=== PATIENT | male | born 1965 | race Caucasian/White ===

== ENCOUNTER 2017-06-08 12:30 | Emergency (ER) | payer OTHER ==
[2017-06-08 13:48] VITALS: BP 224/112
--- NOTE | 2017-06-08 14:13 | RAD ---
INDICATION: Intermittent pain and swelling for 2 years. TECHNIQUE: 3 views of the right foot were obtained. FINDINGS: There is soft tissue swelling adjacent to the first metatarsal-phalangeal joint. No fracture is seen. There is mild osteoarthritic change in the first metatarsal-phalangeal joint. There is suggestion of a small erosion at the base of the first proximal phalanx raising the pelvis and early gouty arthritis. IMPRESSION: SOFT TISSUE SWELLING ADJACENT TO THE FIRST METATARSAL-PHALANGEAL JOINT AND FINDINGS RAISING THE POSSIBILITY OF GOUT.
--- NOTE | 2017-06-08 14:29 | UC ---
Lower Extremity/Ankle HPI - HPI Summary HPI Summary: 51 yo male with intermittent left 1st MTP pain/swelling x 2 yrs states he has white coat HTN - History of Current Complaint Chief Complaint: UCLowerExtremity Stated Complaint: FOOT PAIN Time Seen by Provider: 06/08/17 13:38 Hx Obtained From: Patient Onset/Duration: Gradual Onset, Lasting Days Severity Initially: Moderate Severity Currently: Moderate Pain Intensity: 5 Pain Scale Used: 0-10 Numeric Aggravating Factor(s): Standing, Ambulation Alleviating Factor(s): Rest Able to Bear Weight: Yes - Allergies/Home Medications Allergies/Adverse Reactions: Allergies Allergy/AdvReac Type Severity Reaction Status Date / Time No Known Allergies Allergy Verified 06/08/17 12:54 PMH/Surg Hx/FS Hx/Imm Hx Previously Healthy: Yes Cardiovascular History: Hypertension - white coat - Surgical History Surgical History: Yes Surgery Procedure, Year, and Place: left knee 1981, right thumb 1983 - Family History Known Family History: Positive: Hypertension - Social History Alcohol Use: None Substance Use Type: None Smoking Status (MU): Heavy Every Day Tobacco Smoker - Immunization History Most Recent Tetanus Shot: UTD Review of Systems Constitutional: Negative Skin: Negative Eyes: Negative ENT: Negative Respiratory: Negative Cardiovascular: Negative Gastrointestinal: Negative Genitourinary: Negative Motor: Negative Neurovascular: Negative Musculoskeletal: Arthralgia Neurological: Negative Psychological: Negative Is Patient Immunocompromised?: No All Other Systems Reviewed And Are Negative: Yes Physical Exam Triage Information Reviewed: Yes Appearance: Well-Appearing, No Pain Distress, Well-Nourished Vital Signs: Initial Vital Signs Temp 98.6 F 06/08/17 12:41 Pulse 133 06/08/17 12:41 Resp 20 06/08/17 12:41 BP 248/112 06/08/17 12:41 Pulse Ox 99 06/08/17 12:41 Vital Signs Reviewed: Yes Eyes: Positive: Conjunctiva Clear ENT: Negative: Hearing grossly normal, Nasal congestion, Nasal drainage, Trismus , Muffled voice, Hoarse voice Neck: Positive: Supple, Nontender Respiratory: Positive: Lungs clear, Normal breath sounds, No respiratory distress, No accessory muscle use Cardiovascular: Positive: RRR, No Murmur Musculoskeletal: Positive: Edema @, Other: - see image Neurological: Positive: Alert Psychological Exam: Normal Skin Exam: Normal Diagnostics - Radiology No standard instances Xray Interpretation: No Acute Changes - SOFT TISSUE SWELLING ADJACENT TO THE FIRST METATARSAL-PHALANGEAL JOINT AND FINDINGS RAISING THE POSSIBILITY OF GOUT Radiology Interpretation Completed By: Radiologist Lower Extremity Course/Dx - Differential Dx/Diagnosis Provider Diagnoses: acute gouty arthritis Discharge - Sign-Out/Discharge Documenting (check all that apply): Discharge - Discharge Plan Condition: Stable Disposition: HOME Prescriptions: predniSONE [Prednisone] 60 mg PO DAILY #9 tab Patient Education Materials: Low Purine Diet (ED), Gout (ED) Referrals: Rocio Erickson MD [Primary Care Provider] - 2 Weeks Additional Instructions: you need to get rechecked your BP was high here - Billing Disposition and Condition Condition: STABLE Disposition: HOME Images Feet (Multiple View): 1 - red/swollen
== END 2017-06-08 14:45 | disposition home or self-care (01) ==
LOC: UCEAST 12:30
DX: M10.072 Idiopathic gout, left ankle and foot (principal); I10 Essential (primary) hypertension; F17.210 Nicotine dependence, cigarettes, uncomplicated
CPT/HCPCS: 99212; G0463

== ENCOUNTER 2017-07-29 20:50 | Emergency (ER) | payer OTHER ==
[2017-07-29 20:58] VITALS: BP 190/87
--- NOTE | 2017-07-29 21:27 | ED ---
Palpitations / Dysrhythmia - HPI Summary HPI Summary: 51 yo obese WM recently dx'd with HTN, SBPs in 200's, c/o fast heart rate at rest tonight with mild SOB without chest pain or pressure/n/v/diaphoresis - History of Current Complaint Chief Complaint: UCCardiac Time Seen by Provider: 07/29/17 21:15 Hx Obtained From: Patient Onset/Duration: Sudden Onset Severity Initially: Moderate Severity Currently: Moderate Character: Fast Aggravating: Rest Associated Signs & Symptoms: Negative - Allergy/Home Medications Allergies/Adverse Reactions: Allergies Allergy/AdvReac Type Severity Reaction Status Date / Time No Known Allergies Allergy Verified 07/29/17 20:56 Home Medications: Home Medications Blood Pressure Medication 07/29/17 [History] PMH/Surg Hx/FS Hx/Imm Hx Previously Healthy: No - HTN, OBESE Cardiovascular History: Reports: Hx Hypertension - Surgical History Surgery Procedure, Year, and Place: left knee 1981, right thumb 1983 Infectious Disease History: No Infectious Disease History: Denies: Hx Clostridium Difficile, Hx Hepatitis, Hx Human Immunodeficiency Virus (HIV), Hx of Known/Suspected MRSA, Hx Shingles, Hx Tuberculosis, Hx Known/ Suspected VRE, Hx Known/Suspected VRSA, History Other Infectious Disease, Traveled Outside the [place] in Last 30 Days - Family History Known Family History: Positive: Hypertension - Social History Alcohol Use: None Substance Use Type: Reports: None Smoking Status (MU): Former Smoker Length of Time of Smoking/Using Tobacco: 27 Review of Systems Constitutional: Negative Eyes: Negative ENT: Negative Positive: Palpitations. Negative: Chest Pain Respiratory: Negative Gastrointestinal: Negative Musculoskeletal: Negative Skin: Negative Neurological: Negative All Other Systems Reviewed And Are Negative: Yes Physical Exam Triage Information Reviewed: Yes Vital Signs On Initial Exam: Initial Vitals Temp Pulse Resp BP Pulse Ox 38.2 C 96 18 190/87 96 07/29/17 20:53 07/29/17 20:53 07/29/17 20:53 07/29/17 20:53 07/29/17 20:53 Vital Signs Reviewed: Yes Appearance: Positive: Obese Skin: Positive: Warm Head/Face: Positive: Normal Head/Face Inspection Eyes: Positive: Normal ENT: Positive: Normal ENT inspection Respiratory/Lung Sounds: Positive: Clear to Auscultation Cardiovascular: Positive: Murmur - grade 3 diastolic murmur in 4th ICS radiating to axilla, S1, S2 Abdomen Description: Positive: Nontender Musculoskeletal: Positive: Normal Neurological: Positive: Normal Psychiatric: Positive: Normal Diagnostics - Vital Signs Vital Signs Temp Pulse Resp BP Pulse Ox 07/29/17 20:53 38.2 C 96 18 190/87 96 - Laboratory Lab Statement: Any lab studies that have been ordered have been reviewed, and results considered in the medical decision making process. Course/Dx - Course Course Of Treatment: EKG- NSR- Q wave in lead III and biphasic T waves in inferio-lateral leads W/O typical CP. SBP in 198-200's/80's, advised to go to ER immdeiately, pt DECLINED ambulance transfer - Diagnoses Provider Diagnoses: Hypertension, Abnormal EKG Discharge - Sign-Out/Discharge Documenting (check all that apply): Discharge/Admit/Transfer - Discharge Plan Condition: Stable Disposition: HOME Discharge Disposition Comment: Pt declined ambulance and stated he will drive himself to the [facility] Patient Education Materials: Heart Palpitations (ED) Referrals: Rocio Erickson MD [Primary Care Provider] - Additional Instructions: GO TO ER NOW TO WORK UP FOR HEART PALPAITATIONS, RO RULE OUT OCCULT HEART ATTACK AND POSSIBLE INCOMPETENT MITRAL VALVE - Billing Disposition and Condition Condition: STABLE Disposition: HOME
== END 2017-07-29 21:35 | disposition home or self-care (01) ==
LOC: UCEAST 20:50
DX: I10 Essential (primary) hypertension (principal); R00.0 Tachycardia, unspecified; R06.02 Shortness of breath; E66.9 Obesity, unspecified; Z87.891 Personal history of nicotine dependence; R94.31 Abnormal electrocardiogram [ECG] [EKG]
CPT/HCPCS: 93005; 99212; G0463

== ENCOUNTER 2017-07-29 22:15 | Emergency (ER) | payer OTHER ==
[2017-07-29] MEDS ORDERED: ALPRAZolam TAB* 0.5 MG PO ONE (23:33)
[2017-07-29] MEDS ORDERED: Labetalol IV* 5 MG/ML 20 ML VIAL IV PUSH ONE (23:33)
[2017-07-29 23:47] LABS: ABS Basophils 0.1 10^3/ul (0-0.2); ABS Eosinophils 0.1 10^3/ul (0-0.6); ABS Monocytes 0.8 10^3/ul (0-0.8); ABS Neutrophils 6.7 10^3/ul (1.5-7.7); ABS Nucleated RBC 0 10^3/ul; Eosinophil % 1.4 % (0-6); Hematocrit 41 % (42-52); Hemoglobin 14.5 g/dl (14.0-18.0); Lymphocyte % 20.5 % (25-47); Mean Corpuscular HGB Conc 36 g/dl (31-36); Mean Corpuscular Hemoglobin 31 pg (27-31); Mean Corpuscular Volume 87 fL (80-94); Mean Platelet Volume 7.9 um3 (7.4-10.4); Nucleated Red Blood Cells % 0.1; Platelet Count 205 10^3/ul (150-450); Red Blood Count 4.68 10^6/ul (4.0-5.4); Red Cell Distribution Width 13 % (10.5-15); White Blood Count 9.7 10^3/ul (3.5-10.8)
[2017-07-30 00:05] LABS: EGFR Non-African American 101.5 (>60)
[2017-07-30 00:11] LABS: INR 0.94 (0.77-1.02)
[2017-07-30] MEDS ORDERED: cloNIDine TAB* 0.1 MG PO ONE (01:00)
[2017-07-30 01:49] VITALS: BP 147/76
--- NOTE | 2017-07-30 19:12 | ED ---
Joana Trevino Rebecca, scribed for Katelynn Florentino MD on 07/29/17 at 2331 . Palpitations / Dysrhythmia - HPI Summary HPI Summary: Pt is a 51 y/o M referred from [facility] who presents to ED c/o palpitations and SOB with elevated BP. Sx began sudden tonight at 1999 upon sitting down, " trying to relax." Sx aggravated and alleviated by nothing. Denies any pain. Prior similar episodes 3x in the past, when he had elevated BP. Was seen by his PCP on Tuesday (3 days ago) for similar sx and was placed on Diltiazem ER 1x a day with which he has been compliant. - History of Current Complaint Chief Complaint: EDDysrhythmPalp Time Seen by Provider: 07/29/17 23:22 Hx Obtained From: Patient Onset/Duration: Lasting Hours, Still Present - Elevated BP still present Character: Fast Aggravating: Nothing Alleviating: Nothing Associated Signs & Symptoms: Shortness of Breath Related History: Similar Episode/Dx as - Prior episodes of elevated BP - Allergy/Home Medications Allergies/Adverse Reactions: Allergies Allergy/AdvReac Type Severity Reaction Status Date / Time No Known Allergies Allergy Verified 07/29/17 22:23 PMH/Surg Hx/FS Hx/Imm Hx Endocrine/Hematology History: Denies: Hx Diabetes Cardiovascular History: Reports: Hx Hypertension - Surgical History Surgery Procedure, Year, and Place: left knee 1981, right thumb 1983 - Immunization History Immunizations Up to Date: Yes Infectious Disease History: No Infectious Disease History: Denies: Hx Clostridium Difficile, Hx Hepatitis, Hx Human Immunodeficiency Virus (HIV), Hx of Known/Suspected MRSA, Hx Shingles, Hx Tuberculosis, Hx Known/ Suspected VRE, Hx Known/Suspected VRSA, History Other Infectious Disease, Traveled Outside the [place] in Last 30 Days - Family History Known Family History: Positive: Hypertension - Social History Alcohol Use: None Substance Use Type: Reports: None Smoking Status (MU): Former Smoker Length of Time of Smoking/Using Tobacco: 27 Review of Systems Positive: Other - Elevated BP Positive: Palpitations Positive: Shortness Of Breath Positive: Other - NEGATIVE: Pain All Other Systems Reviewed And Are Negative: Yes Physical Exam - Summary Physical Exam Summary: VITAL SIGNS: Reviewed. GENERAL: ~Patient is a well-developed and nourished male who is lying comfortable in the stretcher. Patient is not in any acute respiratory distress. HEAD AND FACE: No signs of trauma. No ecchymosis, hematomas or skull depressions. No sinus tenderness. EYES: PERRLA, EOMI x 2, No injected conjunctiva, no nystagmus. EARS: Hearing grossly intact. Ear canals and tympanic membranes are within normal limits. MOUTH: Oropharynx within normal limits. NECK: Supple, trachea is midline, no adenopathy, no JVD, no carotid bruit, no c- spine tenderness, neck with full ROM. CHEST: Symmetric, no tenderness at palpation LUNGS: Clear to auscultation bilaterally. No wheezing or crackles. CVS: Regular rate and rhythm, S1 and S2 present, no murmurs or gallops appreciated. ABDOMEN: Soft, non-tender. No signs of distention. No rebound no guarding, and no masses palpated. Bowel sounds are normal. EXTREMITIES: FROM in all major joints, no edema, no cyanosis or clubbing. NEURO: Alert and oriented x 3. No acute neurological deficits. Speech is normal and follows commands. SKIN: Dry and warm Triage Information Reviewed: Yes Vital Signs On Initial Exam: Initial Vitals Temp Pulse Resp BP Pulse Ox 98.0 F 85 16 210/99 96 07/29/17 22:15 07/29/17 22:15 07/29/17 22:15 07/29/17 22:15 07/29/17 22:15 Vital Signs Reviewed: Yes Diagnostics - Vital Signs Vital Signs Temp Pulse Resp BP Pulse Ox 07/29/17 22:35 76 22 214/101 95 07/29/17 22:34 16 07/29/17 22:32 20 219/101 07/29/17 22:15 98.0 F 85 16 210/99 96 - Laboratory Result Diagrams: 07/29/17 23:40 07/29/17 23:40 Lab Statement: Any lab studies that have been ordered have been reviewed, and results considered in the medical decision making process. - EKG 2229 Cardiac Rate: NL - 72 bpm EKG Rhythm: Sinus Rhythm EKG Interpretation: LVH Re-Evaluation - Re-Evaluation First Eval Re-Evaluation Time: 00:59 Comment: Pt feels better and is sleeping. He takes Diltiazem ER 180. BP is now 170/90. Advised him to increase it to 360 (taking 2 tablets instead of 1) and he needs to follow up with his PCP on Tuesday. Course/Dx - Course Assessment/Plan: Pt is a 51 y/o M referred from [facility] who presents to ED c/o palpitations and SOB with elevated BP of acute onset tonight at 1999. Denies any pain. Prior similar episodes 3x in the past, when he had elevated BP. Was seen by his PCP on Tuesday (3 days ago) for similar sx and was placed on Diltiazem ER 1x a day with which he has been compliant. Blood work was done, including a troponin of 0.03. EKG is sinus rhythm with LVH. In the ER course, pt received Xanax, Catapres, and Trandate. Pt feels better and is sleeping. BP is now 170/90, after medications. Advised him to increase it to 360 (taking 2 tablets instead of 1) and he needs to follow up with his PCP on Tuesday. Pt will be D/C to home with Dx of HTN with follow up and increased dosage instructions. He understands and agrees. - Diagnoses Provider Diagnoses: Hypertension Discharge - Sign-Out/Discharge Documenting (check all that apply): Discharge/Admit/Transfer - Discharge - Discharge Plan Condition: Stable Disposition: HOME Patient Education Materials: Hypertension (ED) Referrals: Rocio Erickson MD [Primary Care Provider] - 08/02/17 Additional Instructions: Patient advised to increase Diltiazem to 360 (2 tablets) once a day. RETURN TO ED FOR ANY NEW OR WORSENING SYMPTOMS. The documentation as recorded by the Joana toro Rebecca accurately reflects the service I personally performed and the decisions made by Mishel zamudio Abdul, MD.
== END 2017-07-30 01:49 | disposition home or self-care (01) ==
LOC: ED 22:15
DX: I10 Essential (primary) hypertension (principal); Z87.891 Personal history of nicotine dependence
CPT/HCPCS: 36415; 80053; 83735; 84484; 85025; 85610; 85730; 93005; 96374; 99283; A9270-GY

== ENCOUNTER → 2018-04-16 20:45 | Emergency (ER) | payer OTHER ==
[~2018-04-16 20:45] MED LIST: Bisacodyl SUPP* 10 MG SUPP PR ONE; Dicyclomine CAP* 10 MG PO ONE; Magnesium CITRATE* 300 ML BTL PO ONE; Pantoprazole IV* 40 MG IV ONE
--- NOTE | 2018-04-16 21:12 | ED ---
Abdominal Pain/Male - HPI Summary HPI Summary: This patient is a 52 year old M presenting to [facility] with a chief complaint of intermittent lower abd pain since 2 day ago. The patient notes that the pain worsened since 1 day ago and began to radiate to his chest. The patient rates the pain 8/10 in severity. Symptoms aggravated by nothing. Symptoms alleviated by nothing. Patient denies N/V. Pt has hx HTN. - History of Current Complaint Chief Complaint: EDChestPainROMI Stated Complaint: CHEST PAIN/ABD PAIN Time Seen by Provider: 04/16/18 21:01 Hx Obtained From: Patient Onset/Duration: Gradual Onset, Lasting Days - 2 days, Still Present, Worse Since - 1 day ago Timing: Intermittent, Lasting Days Severity Initially: Mild Severity Currently: Moderate Pain Intensity: 8 Pain Scale Used: 0-10 Numeric Location: Discrete At: RLQ, Discrete At: LLQ Radiates: Yes Radiates to: Chest Aggravating Factor(s): Nothing Alleviating Factor(s): Nothing Associated Signs And Symptoms: Negative: Nausea, Vomiting - Allergies/Home Medications Allergies/Adverse Reactions: Allergies Allergy/AdvReac Type Severity Reaction Status Date / Time No Known Allergies Allergy Verified 07/29/17 22:23 Home Medications: Home Medications Buprenorp/Nalox 8-2 MG FILM [Suboxone 8 mg-2 mg Sl Film] 1 film PO DAILY [History Confirmed 04/16/18] PMH/Surg Hx/FS Hx/Imm Hx Endocrine/Hematology History: Denies: Hx Diabetes Cardiovascular History: Reports: Hx Hypertension Denies: Hx Angina, Hx Coronary Artery Disease, Hx Hypercholesterolemia, Hx Myocardial Infarction, Hx Valvular Heart Disease - Chronic murmur since childhood Respiratory History: Denies: Hx Asthma, Hx Chronic Obstructive Pulmonary Disease (COPD) - Surgical History Surgery Procedure, Year, and Place: left knee 1981, right thumb 1983 Infectious Disease History: No Infectious Disease History: Denies: Hx Clostridium Difficile, Hx Hepatitis, Hx Human Immunodeficiency Virus (HIV), Hx of Known/Suspected MRSA, Hx Shingles, Hx Tuberculosis, Hx Known/ Suspected VRE, Hx Known/Suspected VRSA, History Other Infectious Disease, Traveled Outside the [place] in Last 30 Days - Family History Known Family History: Positive: Hypertension - Social History Alcohol Use: None Substance Use Type: Reports: None Smoking Status (MU): Former Smoker Length of Time of Smoking/Using Tobacco: 27 Review of Systems Negative: Fever Negative: Epistaxis Positive: Chest Pain Positive: Abdominal Pain. Negative: Vomiting, Nausea Negative: Rash All Other Systems Reviewed And Are Negative: Yes Physical Exam - Summary Physical Exam Summary: VITAL SIGNS: Reviewed. GENERAL: Patient is a well-developed and nourished MALE who is lying comfortable in the stretcher. Patient is not in any acute respiratory distress. HEAD AND FACE: No signs of trauma. No ecchymosis, hematomas or skull depressions. No sinus tenderness. EYES: PERRLA, EOMI x 2, No injected conjunctiva, no nystagmus. EARS: Hearing grossly intact. Ear canals and tympanic membranes are within normal limits. MOUTH: Oropharynx within normal limits. NECK: Supple, trachea is midline, no adenopathy, no JVD, no carotid bruit, no c- spine tenderness, neck with full ROM. CHEST: Symmetric, no tenderness at palpation LUNGS: Clear to auscultation bilaterally. No wheezing or crackles. CVS: Regular rate and rhythm, S1 and S2 present, no murmurs or gallops appreciated. ABDOMEN: Soft, non-tender. No signs of distention. No rebound no guarding, and no masses palpated. Bowel sounds are normal. EXTREMITIES: FROM in all major joints, no edema, no cyanosis or clubbing. NEURO: Alert and oriented x 3. No acute neurological deficits. Speech is normal and follows commands. SKIN: Dry and warm Triage Information Reviewed: Yes Vital Signs On Initial Exam: Initial Vitals Temp Pulse Resp BP Pulse Ox 99.8 F 77 20 210/89 96 04/16/18 20:48 04/16/18 20:48 04/16/18 20:48 04/16/18 20:48 04/16/18 20:48 Vital Signs Reviewed: Yes Diagnostics - Vital Signs Vital Signs Temp Pulse Resp BP Pulse Ox 04/16/18 20:48 99.8 F 77 20 210/89 96 - Laboratory Result Diagrams: 04/16/18 21:25 04/16/18 21:25 Lab Statement: Any lab studies that have been ordered have been reviewed, and results considered in the medical decision making process. - Radiology CXR Radiology Interpretation Completed By: ED Physician - Dr. Florentino, pending official report Summary of Radiographic Findings: no acute process Abdomen XR Radiology Interpretation Completed By: ED Physician - Dr. Florentino, pending official report Summary of Radiographic Findings: consistent with constipation - EKG 20:50 Cardiac Rate: NL - at 70 bpm EKG Rhythm: 1st Degree HB - AV heart block ST Segment: Non-Specific - non-specific T wave changes EKG Comparison: No Significant Change - from EKG on 07/29/17 Summary of EKG Findings: sinus rhythm at 70 bpm with 1st degree AV heart block and non-specific T wave changes. No significant change from EKG on 07/29/17 Abdominal Pain Fem Course/Dx - Course Course Of Treatment: This patient is a 52 year old M with hx HTN presenting to [facility] with a chief complaint of intermittent lower abd pain since 2 day ago. The patient notes that the pain worsened since 1 day ago and began to radiate to his chest. An EKG reveals sinus rhythm at 70 bpm with 1st degree AV heart block and non-specific T wave changes. No significant change from EKG on . CXR reveals, per ED physician, no acute process. Abd XR reveals, per ED physician, consistent with constipation. Test results with no significant abnormalities. Patient will be discharged home with follow up from PCP. Dx constipation and abd pain. The patient is agreeable with this plan. - Diagnoses Provider Diagnoses: Constipation, Abdominal pain Discharge - Sign-Out/Discharge Documenting (check all that apply): Patient Departure - discharge home Patient Received Moderate/Deep Sedation with Procedure: No - Discharge Plan Condition: Stable Disposition: HOME Patient Education Materials: Constipation (ED), Abdominal Pain (ED) Referrals: Rocio Erickson MD [Primary Care Provider] - Additional Instructions: Follow up with primary care physician in 1-2 days. Return to the emergency department with any new or worsening symptoms. - Attestation Statements Document Initiated by Scribe: Yes Documenting Scribe: Renée Blancas Provider For Whom Scribe is Documenting (Include Credential): Katelynn Florentino MD Scribe Attestation: Renée Trevino, scribed for Katelynn Florentino MD on 04/16/18 at [phone]. Status of Scribe Document: Ready
[2018-04-16 21:35] LABS: ABS Basophils 0 10^3/ul (0-0.2); ABS Eosinophils 0.1 10^3/ul (0-0.6); ABS Lymphocytes 1.8 10^3/ul (1.0-4.8); ABS Monocytes 0.6 10^3/ul (0-0.8); ABS Neutrophils 5.7 10^3/ul (1.5-7.7); ABS Nucleated RBC 0 10^3/ul; Eosinophil % 1.6 %; Hematocrit 43 % (42-52); Hemoglobin 15.3 g/dl (14.0-18.0); Lymphocyte % 21.4 %; Mean Corpuscular HGB Conc 35 g/dl (31-36); Mean Corpuscular Hemoglobin 32 pg (27-31); Mean Corpuscular Volume 90 fL (80-94); Mean Platelet Volume 8.8 fL (7.4-10.4); Nucleated Red Blood Cells % 0.1; Platelet Count 202 10^3/ul (150-450); Red Blood Count 4.85 10^6/ul (4.00-5.40); Red Cell Distribution Width 13 % (10.5-15); White Blood Count 8.2 10^3/ul (3.5-10.8)
[2018-04-16 21:36] LABS: Urine Appearance Cloudy; Urine Bilirubin Negative (Negative); Urine Blood Negative (Negative); Urine Color Yellow; Urine Glucose Negative (Negative); Urine Ketones Negative (Negative); Urine Nitrite Negative (Negative); Urine Protein Negative (Negative); Urine Specific Gravity 1.013 (1.010-1.030); Urine Urobilinogen Negative (Negative)
[2018-04-16 21:45] LABS: Activated Partial Thrombo Time 32.3 seconds (26.0-36.3); INR 0.9 (0.77-1.02)
[2018-04-16 21:51] LABS: Albumin 4.3 g/dL (3.2-5.2); BUN/Creatinine Ratio 18.1 (8-20); C Reactive Protein 2.37 mg/L (<8.01); Calcium 9.2 mg/dL (8.6-10.3); EGFR African American 89.4 (>60); EGFR Non-African American 73.9 (>60); Globulin 2.2 g/dL (2-4); Total Bilirubin 0.5 mg/dL (0.2-1.0); Total Protein 6.5 g/dL (6.4-8.9)
[2018-04-16 21:53] LABS: Troponin I 0.01 ng/mL (<0.04)
[2018-04-16 22:26] LABS: Potassium 3.4 mmol/L (3.5-5.0)
[2018-04-16 23:47] VITALS: BP 151/80
== END | disposition home or self-care (01) ==
LOC: ED 20:45
DX: K59.00 Constipation, unspecified (principal); R10.30 Lower abdominal pain, unspecified; I44.0 Atrioventricular block, first degree; Z87.891 Personal history of nicotine dependence
CPT/HCPCS: 36415; 71045; 74019; 80053; 81003; 82150; 83690; 83735; 84484; 85025; 85610; 85730; 86140; 93005; 96374; 99283; A9270-GY

== ENCOUNTER 2018-05-15 23:10 | Emergency (ER) | payer OTHER ==
--- OUTSIDE RECORDS SUMMARY | 2018-05-15 23:30 | XMS REPORT | Continuity of Care Document ---
:1965 External Reference #:[id number] Author Name Noemi Conner Care Team Providers Name Role Phone Rocio Erickson MD Primary Care Physician Unavailable Payers Date Identification Numbers Payment Provider Subscriber Effective: 2016 Policy Number: [id number] Joaquín Zuniga PayID: [id number] [address] [place] [address] Advance Directives Description No Information Available Problems Description No Information Family History Date Family Member(s) Observation Comments Father due to Prostate Cancer () Mother due to CHF () Social History Type Date Description Comments Sex Unknown Marital Status Single Lives With 2 dogs Occupation Construction Tobacco Use Start: Unknown Light tobacco smoker (10 or fewer cigarettes/day) Tobacco Use Start: Unknown Patient is a current smoker, smokes every day Smoking Status Reviewed: 04/26/18 Patient is a current smoker, smokes every day Exercise Exercises regularly Self employed Type/Frequency construction Allergies, Adverse Reactions, Alerts Description No Known Drug Allergies Medications Medication Date Status Form Strength Qnty SIG Indications Ordering Provider Diltiazem HCL Active 360mg 1 tab by Unknown 00 mouth every day Alprazolam Active Unknown 00 Losartan Active Unknown Potassium 00 Once Daily Active Tablets 1 by mouth Unknown 00 every day Allergy Active as needed Unknown Medication 00 Immunizations Description No Information Available Vital Signs Date Vital Result Comment 04/26/2018 9:04am Height 70 inches 5'10" Weight 235.50 lb Heart Rate 72 /min BP Systolic Sitting 212 mmHg Lue large cuff BP Diastolic Sitting 94 mmHg Lue large cuff Respiratory Rate 16 /min O2 % BldC Oximetry 98 % On Ra BMI (Body Mass Index) 33.8 kg/m2 02/07/2018 7:25am Height 70 inches 5'10" Weight 235.25 lb Heart Rate 72 /min BP Systolic Sitting 220 mmHg Lue large cuff BP Diastolic Sitting 92 mmHg Lue large cuff Respiratory Rate 16 /min O2 % BldC Oximetry 97 % BMI (Body Mass Index) 33.8 kg/m2 Neck Circumference in inches 19.25 Results Description No Information Available Procedures Date Code Description Status 02/21/2018 41428 Sleep Study Unattended,HRT Rate,Oxygen Sat,Resp Completed Effort/Airflow 08/04/2017 13043 Stress ECHO Interpretation/Report Hospital Completed 08/04/2017 76787 Treadmill Interp/Report Only Completed 08/04/2017 55365 Stress Test Supervsn W/Out I/R Completed Encounters Type Date Location Provider Dx Diagnosis Office Visit 02/07/2018 [facility] Maribel Becker MD R06.83 Snoring 8:00[facility] R53.83 Other fatigue E66.09 Other obesity due to excess calories Z68.33 Body mass index (BMI) 33.0-33.9, adult Plan of Treatment Future Appointment(s):06/26/2018 9:00 am - Antonia Chappell DNP, RN, [employer]BI[employer] WORK[employer]-BC at [facility]04/26/2018 - Antonia Chappell DNP, RN, [employer]ILITY WORKER- [id number] Obstructive sleep apnea (adult) (pediatric)New Orders:[facility], Ordered: 04/26/18Sleep Study, Ordered: 04/26/18Comments:02/21/19 HST AHI 70.3/ hour, nancy oxygen 84%Follow up:6 weeksRecommendations:Continue PAP device, Benefitting and compliant with treatment. Recommend change in setting Complex apnea noted on CPAP with severe apnea, recommend in-lab CPAP titration and if centrals worsen change to ASV titration. Cleaning Wipe off mask daily (baby wipe -no scent, or warm water) Clean mask, tubing,filter, and water chamber weekly in mild no scent dish soap and water. Hang to dry. If you have any sleepiness while driving you MUST avoid operating a vehicle or machinery. If you have difficulty with your equipment, or need to replace your mask or hoses, please contact your homecare agency. A weight change of 20 pounds or more may have an effect on your equipment; if you are experiencing problems please call for an appointment. If you have any further questions, please call the [facility] at [phone].g47.37 Central sleep apnea in conditions classified elsewhereRecommendations:See assessment #1 PAP emergent central apnea [id number] Body mass index (BMI) 33.0-33.9, adultRecommendations:Avoid weight gain
--- OUTSIDE RECORDS SUMMARY | 2018-05-15 23:30 | XMS REPORT | Continuity of Care Document ---
:1965 External Reference #:[id number] Author Name Rocio Ericksno M.D. Address [address] [place] [address] [address] [place] [address] Care Team Providers Name Role Phone Rocio Erickson MD Care Team Information Hairspring [employer] Unavailable Payers Date Identification Numbers Payment Provider Subscriber Policy Number: [id number] [facility] Warren Zuniga PayID: [id number] [address] [place] [address] Policy Number: [id number] Medicaid/[facility] Warren Zuniga PayID: [id number] [address] [place] [address] Advance Directives Description No Information Available Problems Date Description Provider Status Onset: 06/03/2011 Anxiety state Rocio Erickson M.D. Active Onset: 06/03/2011 Depressive disorder Rocio Erickson M.D. Active Onset: 12/03/2011 Osteoarthritis Rocio Erickson M.D. Active Onset: 12/03/2011 Arthralgia of the lower leg Rocio Erickson M.D. Active Onset: 12/03/2011 Malaise and fatigue Rocio Erickson M.D. Active Onset: 04/03/2013 Insomnia Rocio Erickson M.D. Active Family History Date Family Member(s) Observation Comments Children None Siblings 1 Social History Type Date Description Comments Sex Unknown Tobacco Use Start: Unknown Current Cigarette Smoker pt has been smoking half a pack a day for 20 years ETOH Use Occasionally consumed alcohol in the past Recreational Drug Use Denies Drug Use Tobacco Use Start: Unknown Patient is a current smoker, smokes every day Smoking Status Reviewed: 11/28/17 Patient is a current smoker, smokes every day Allergies, Adverse Reactions, Alerts Description No Known Drug Allergies Medications Medication Date Status Form Strength Qnty SIG Indications Ordering Provider Miralax Active Powder 3350NF 1020gm 1-2 caps K58.1 Dre, 019 by mouth Ahmad M., every day M.D. Losartan Active Tablets 100-25mg 90tabs 1 by I10 Dre, Potassium/Hyd 018 mouth Ahmad M., rochlorothiaz every day M.D. alfa Alprazolam Active Tablets 0.25mg 30tabs 1 by F41.9 Dre, 018 mouth Ahmad M., three M.D. times a day as needed Cardizem CD Active Caps ER 360mg 90caps 1 by I10 Dre, 018 24HR mouth Ahmad M., every day M.D. Ibuprofen Active Tablets 800mg 90tabs 1 by 719.46 Dre, 013 mouth Ahmad M., three M.D. times a day as needed 729.5 Hydrochlorothiazide Hx Tablets 25mg 30tabs 1 tab by I10 Dre, 018 - mouth every Ahmad M., day M.D. 018 Cardizem CD Hx Caps ER 24HR 180mg 30caps 1 by mouth I10 Dre, 018 - every day Ahmad M., M.D. 018 Cipro Hx Tablets 500mg 20tabs 1 tab by 785.6 Dre, 015 - mouth twice Ahmad M., a day M.D. 015 Zoloft Hx Tablets 50mg 30tabs 1 every day 300.00 Dre, 014 - Ahmad M., M.D. 015 311 Zoloft 12/28/2012 - Hx Tablets 25mg 90tabs 2 tab by mouth 300.00 Dre , Ahmad 04/03/2013 every day M., M.D. 311 No Active 08/31/2012 - Hx Unknown Medications 08/31/2012 Zoloft 08/31/2012 - Hx Tablets 25mg 30tabs 1 by mouth 300.00 Dre, Ahmad 12/28/2012 every day Mayi Mcelroy 311 Phendimetrazine 07/13/2012 - Hx Tablets 35mg 90tabs 1 by mouth 300.00 Dre, Tartrate 08/31/2012 three Ahmad M., times a M.D. day 780.79 Buspirone HCL 03/23/2012 - Hx Tablets 15mg 60tabs 1 tab by 300.00 Dre , 07/13/2012 mouth Ahmad M., twice a M.D. day Citalopram 02/03/2012 - Hx Tablets 40mg 90tabs 1 by mouth 300.00 Dre, Hydrobromide 07/13/2012 every day Rocio Mcelroy M.D. 311 Androgel Pump 12/03/2011 - Hx Gel 20.25mg/Act 75gm 1-2 Pump 780.79 Dre, 02/03/2012 (1.62%) To Dry Rocio Mcelroy Skin M.DBhavesh every day Paxil 06/03/2011 - Hx Tablets 20mg 1 by Dre, 03/23/2012 mouth Shelbymad M., every day M.D. Immunizations Description No Information Available Vital Signs Date Vital Result Comment 04/18/2018 1:33pm BP Systolic 152 mmHg BP Diastolic 82 mmHg Height 71 inches 5'11" Weight 240.00 lb BMI (Body Mass Index) 33.5 kg/m2 Heart Rate 81 /min Respiratory Rate 18 /min 11/29/2017 8:56am BP Systolic 240 mmHg BP Diastolic 100 mmHg BP Systolic Recheck 190 mmHg BP Diastolic Recheck 90 mmHg Height 71 inches 5'11" Weight 234.00 lb BMI (Body Mass Index) 32.6 kg/m2 Heart Rate 96 /min 10/04/2017 4:18pm BP Systolic 200 mmHg BP Diastolic 80 mmHg BP Systolic Recheck 170 mmHg BP Diastolic Recheck 80 mmHg Height 71 inches 5'11" Weight 227.00 lb BMI (Body Mass Index) 31.7 kg/m2 Heart Rate 98 /min Respiratory Rate 16 /min 09/08/2017 4:22pm BP Systolic 164 mmHg BP Diastolic 78 mmHg Height 71 inches 5'11" Weight 234.00 lb BMI (Body Mass Index) 32.6 kg/m2 Heart Rate 71 /min Respiratory Rate 16 /min 08/02/2017 3:26pm BP Systolic 200 mmHg BP Diastolic 100 mmHg Height 71 inches 5'11" Weight 243.00 lb BMI (Body Mass Index) 33.9 kg/m2 Heart Rate 94 /min Respiratory Rate 18 /min 07/26/2017 3:00pm BP Systolic 250 mmHg 210/102 BP Diastolic 110 mmHg 210/102 BP Systolic Recheck 282 mmHg BP Diastolic Recheck 100 mmHg Height 71 inches 5'11" Weight 243.00 lb BMI (Body Mass Index) 33.9 kg/m2 Heart Rate 91 /min Respiratory Rate 18 /min 06/15/2017 8:36am BP Systolic 164 mmHg manual with large cuff BP Diastolic 96 mmHg manual with large cuff 06/15/2017 8:05am BP Systolic 220 mmHg BP Diastolic 110 mmHg Height 71 inches 5'11" Weight 247.00 lb BMI (Body Mass Index) 34.4 kg/m2 Heart Rate 63 /min Respiratory Rate 18 /min 07/16/2016 8:35am BP Systolic 132 mmHg BP Diastolic 64 mmHg Height 71 inches 5'11" Weight 240.00 lb BMI (Body Mass Index) 33.5 kg/m2 Heart Rate 82 /min Respiratory Rate 16 /min 11/01/2014 2:28pm BP Systolic 192 mmHg machine BP Diastolic 97 mmHg machine BP Systolic Recheck 200 mmHg manual BP Diastolic Recheck 94 mmHg manual Height 71 inches 5'11" Weight 199.00 lb BMI (Body Mass Index) 27.8 kg/m2 Heart Rate 70 /min Respiratory Rate 16 /min 04/03/2013 9:54am BP Systolic 200 mmHg BP Diastolic 92 mmHg Height 71 inches 5'11" Weight 242.00 lb BMI (Body Mass Index) 33.7 kg/m2 Heart Rate 69 /min Respiratory Rate 22 /min 12/28/2012 4:25pm BP Systolic 130 mmHg BP Diastolic 80 mmHg Height 71 inches 5'11" Weight 225.00 lb BMI (Body Mass Index) 31.4 kg/m2 Heart Rate 66 /min Body Temperature 97.0 F 08/31/2012 3:06pm BP Systolic 138 mmHg BP Diastolic 74 mmHg Height 71 inches 5'11" Weight 216.00 lb BMI (Body Mass Index) 30.1 kg/m2 Heart Rate 79 /min Respiratory Rate 20 /min 07/13/2012 4:13pm BP Systolic 140 mmHg BP Diastolic 92 mmHg Height 71 inches 5'11" Weight 218.00 lb BMI (Body Mass Index) 30.4 kg/m2 Heart Rate 97 /min Respiratory Rate 18 /min 03/23/2012 4:44pm BP Systolic 126 mmHg BP Diastolic 70 mmHg Height 71 inches 5'11" Weight 208.00 lb BMI (Body Mass Index) 29.0 kg/m2 Heart Rate 71 /min Body Temperature 98.1 F Respiratory Rate 16 /min 02/03/2012 11:32am BP Systolic 190 mmHg BP Diastolic 100 mmHg Height 71 inches 5'11" Weight 207.00 lb BMI (Body Mass Index) 28.9 kg/m2 Heart Rate 76 /min Respiratory Rate 12 /min 12/03/2011 11:06am BP Systolic 145 mmHg BP Diastolic 70 mmHg Height 71 inches 5'11" Weight 205.00 lb BMI (Body Mass Index) 28.6 kg/m2 Heart Rate 85 /min Last Menstrual Period 0 Respiratory Rate 14 /min 06/03/2011 2:04pm BP Systolic 173 mmHg BP Diastolic 106 mmHg Height 71 inches 5'11" Weight 205.00 lb BMI (Body Mass Index) 28.6 kg/m2 Heart Rate 79 /min Last Menstrual Period 0 Respiratory Rate 14 /min Results Test Date Facility Test Result H/L Range Note CBC Auto Diff 04/16/2018 [facility] White Blood 8.2 10^3/uL N 3.5- 10.8 Count Red Blood Count 4.85 10^6/uL N 4.00-5.40 Hemoglobin 15.3 g/dL N 14.0-18.0 Hematocrit 43 % N 42-52 Mean Corpuscular Volume 90 fL N 80-94 Mean Corpuscular Hemoglobin 32 pg High 27-31 Mean Corpuscular HGB Conc 35 g/dL N 31-36 Red Cell Distribution Width 13 % N 10.5-15 Platelet Count 202 10^3/uL N 150-450 Mean Platelet Volume 8.8 fL N 7.4-10.4 Abs Neutrophils 5.7 10^3/uL N 1.5-7.7 Abs Lymphocytes 1.8 10^3/uL N 1.0-4.8 Abs Monocytes 0.6 10^3/uL N 0-0.8 Abs Eosinophils 0.1 10^3/uL N 0-0.6 Abs Basophils 0 10^3/uL N 0-0.2 Abs Nucleated RBC 0 10^3/uL Granulocyte % 69.6 % Lymphocyte % 21.4 % Monocyte % 6.9 % Eosinophil % 1.6 % Basophil % 0.5 % Nucleated Red Blood Cells % 0.1 Urinalysis Profile 04/16/2018 [facility] Urine Color Yellow Urine Appearance Cloudy Urine Specific Eloy 1.013 N 1.010-1.030 Urine pH 7.0 N 5-9 Urine Urobilinogen Negative Negative Urine Ketones Negative Negative Urine Protein Negative Negative Urine Leukocytes Negative Negative Urine Blood Negative Negative * * Abnormal Negative 1 Urine Nitrite Negative Negative Urine Bilirubin Negative Negative Urine Glucose Negative Negative Inr/Protime 04/16/2018 [facility] Inr 0.90 N 0.77-1.02 Laboratory test 04/16/2018 [facility] Partial 32.3 seconds N 26.0- 36.3 finding Thrombo Time PTT Comp Metabolic 04/16/2018 [facility] Sodium 139 mmol/L N 135-145 Panel Chloride 101 mmol/L N 101-111 Co2 Carbon Dioxide 31 mmol/L N 22-32 Glucose 121 mg/dL High 70-100 Blood Urea Nitrogen 19 mg/dL N 6-24 Creatinine 1.05 mg/dL N 0.67-1.17 BUN/Creatinine Ratio 18.1 N 8-20 Calcium 9.2 mg/dL N 8.6-10.3 Total Protein 6.5 g/dL N 6.4-8.9 Albumin 4.3 g/dL N 3.2-5.2 Globulin 2.2 g/dL N 2-4 Albumin/Globulin Ratio 2.0 N 1-3 Total Bilirubin 0.50 mg/dL N 0.2-1.0 Alkaline Phosphatase 67 U/L N 34-104 Alt 24 U/L N 7-52 Egfr Non- 73.9 >60 Egfr 89.4 >60 2 Potassium 3.4 mmol/L Low 3.5-5.0 Anion Gap 7 mmol/L N 2-11 Ast 19 U/L N 13-39 Laboratory test finding 04/16/2018 [facility] Amylase 30 U/L N 29- 103 Lipase 21 U/L N 11.0-82.0 C Reactive Protein 2.37 mg/L N <8.01 Troponin-I (TnI) 0.01 ng/mL <0.04 3 Magnesium 2.0 mg/dL N 1.9-2.7 Laboratory test 07/29/2017 [facility] Partial Thrombo 31.2 seconds N 26.0-36.3 finding Time PTT Inr/Protime 07/29/2017 [facility] Inr 0.94 N 0.77-1.02 Laboratory test 07/29/2017 [facility] Magnesium 2.0 mg/dL N 1.9-2.7 finding Troponin-I (TnI) 0.03 ng/mL <0.04 Comp Metabolic Panel 07/29/2017 [facility] Sodium 141 mmol/L N 139- 145 Potassium 3.2 mmol/L Low 3.5-5.0 Chloride 103 mmol/L N 101-111 Co2 Carbon Dioxide 30 mmol/L N 22-32 Anion Gap 8 mmol/L N 2-11 Glucose 102 mg/dL High 70-100 Blood Urea Nitrogen 13 mg/dL N 6-24 Creatinine 0.80 mg/dL N 0.67-1.17 BUN/Creatinine Ratio 16.3 N 8-20 Calcium 8.7 mg/dL N 8.6-10.3 Total Protein 6.5 g/dL N 6.4-8.9 Albumin 4.2 g/dL N 3.2-5.2 Globulin 2.3 g/dL N 2-4 Albumin/Globulin Ratio 1.8 N 1-3 Total Bilirubin 0.90 mg/dL N 0.2-1.0 Alkaline Phosphatase 72 U/L N 34-104 Alt 23 U/L N 7-52 Ast 20 U/L N 13-39 Egfr Non- 101.5 >60 Egfr 130.6 >60 4 CBC Auto Diff 07/29/2017 [facility] White Blood Count 9.7 10^3/uL N 3.5-10.8 Red Blood Count 4.68 10^6/uL N 4.0-5.4 Hemoglobin 14.5 g/dL N 14.0-18.0 Hematocrit 41 % Low 42-52 Mean Corpuscular Volume 87 fL N 80-94 Mean Corpuscular Hemoglobin 31 pg N 27-31 Mean Corpuscular HGB Conc 36 g/dL N 31-36 Red Cell Distribution Width 13 % N 10.5-15 Platelet Count 205 10^3/uL N 150-450 Mean Platelet Volume 7.9 um3 N 7.4-10.4 Abs Neutrophils 6.7 10^3/uL N 1.5-7.7 Abs Lymphocytes 2.0 10^3/uL N 1.0-4.8 Abs Monocytes 0.8 10^3/uL N 0-0.8 Abs Eosinophils 0.1 10^3/uL N 0-0.6 Abs Basophils 0.1 10^3/uL N 0-0.2 Abs Nucleated RBC 0 10^3/uL Granulocyte % 69.2 % N 38-83 Lymphocyte % 20.5 % Low 25-47 Monocyte % 7.8 % High 0-7 Eosinophil % 1.4 % N 0-6 Basophil % 1.1 % N 0-2 Nucleated Red Blood Cells % 0.1 CBC Auto Diff 07/26/2017 [facility] White Blood Count 10.6 10^3/uL N 3.5-10.8 Red Blood Count 5.30 10^6/uL N 4.0-5.4 Hemoglobin 16.2 g/dL N 14.0-18.0 Hematocrit 46 % N 42-52 Mean Corpuscular Volume 87 fL N 80-94 Mean Corpuscular Hemoglobin 31 pg N 27-31 Mean Corpuscular HGB Conc 35 g/dL N 31-36 Red Cell Distribution Width 13 % N 10.5-15 Platelet Count 269 10^3/uL N 150-450 Mean Platelet Volume 8.6 um3 N 7.4-10.4 Abs Neutrophils 7.0 10^3/uL N 1.5-7.7 Abs Lymphocytes 2.8 10^3/uL N 1.0-4.8 Abs Monocytes 0.7 10^3/uL N 0-0.8 Abs Eosinophils 0.1 10^3/uL N 0-0.6 Abs Basophils 0.1 10^3/uL N 0-0.2 Abs Nucleated RBC 0 10^3/uL Granulocyte % 65.8 % N 38-83 Lymphocyte % 25.9 % N 25-47 Monocyte % 6.2 % N 0-7 Eosinophil % 1.3 % N 0-6 Basophil % 0.8 % N 0-2 Nucleated Red Blood Cells % 0.2 Comp Metabolic Panel 07/26/2017 [facility] Sodium 143 mmol/L N 139- 145 Potassium 3.2 mmol/L Low 3.5-5.0 Chloride 101 mmol/L N 101-111 Co2 Carbon Dioxide 32 mmol/L N 22-32 Anion Gap 10 mmol/L N 2-11 Glucose 109 mg/dL High 70-100 Blood Urea Nitrogen 11 mg/dL N 6-24 Creatinine 0.71 mg/dL N 0.67-1.17 BUN/Creatinine Ratio 15.5 N 8-20 Calcium 9.5 mg/dL N 8.6-10.3 Total Protein 7.1 g/dL N 6.4-8.9 Albumin 4.8 g/dL N 3.2-5.2 Globulin 2.3 g/dL N 2-4 Albumin/Globulin Ratio 2.1 N 1-3 Total Bilirubin 0.90 mg/dL N 0.2-1.0 Alkaline Phosphatase 88 U/L N 34-104 Alt 28 U/L N 7-52 Ast 23 U/L N 13-39 Egfr Non- 116.5 >60 Egfr 149.8 >60 5 Lipid Profile (Trig/Chol/HDL) 07/26/2017 [facility] Triglycerides 299 mg/dL 6 Cholesterol 217 mg/dL 7 HDL Cholesterol 42.8 mg/dL 8 LDL Cholesterol 114 mg/dL 9 Laboratory test 07/26/2017 [facility] TSH (Thyroid 3.39 mcIU/mL N 0.34-5.60 10 finding Stim Horm) Vitamin D Total 25(Oh) 27.3 ng/mL N 20-50 11 Uric Acid 7.0 mg/dL N 4.4-7.6 12 Laboratory test 07/16/2016 [facility] TSH (Thyroid 5.17 mcIU/mL N 0.34-5.60 13 finding Stim Horm) Erythrocyte Sed Rate 10 mm/Hr N 0-20 14 Lipid Profile 07/16/2016 [facility] Triglycerides 316 mg/dL N 15 (Trig/Chol/HDL) Cholesterol 225 mg/dL N 16 HDL Cholesterol 34.6 mg/dL N 17 LDL Cholesterol 127 mg/dL N 18 Laboratory test 07/16/2016 [facility] Lyme Disease Negative N Negative 19 finding Serology Montserrat Bose 07/16/2016 [facility] Ebv Capsid Ag Positive N Negative Comprehensive IgG Ab Ebv Capsid Ag IgM Ab Negative N Negative Montserrat-Bose Nuclear Antigen Positive N Negative Montserrat-Bose Virus Interp See Comment N 20 Laboratory test 07/16/2016 [facility] Rheumatoid Factor <15 IU/mL N < 15 21 finding Connective Tissue 07/16/2016 [facility] Anti-Nuclear 0.6 U N 22 Panel Antibody Cyclic Citrullinated Peptide <15.6 U N 23 Interpretation See Comment N 24 Comp Metabolic Panel 07/16/2016 [facility] Sodium 141 mmol/L N 133- 145 Potassium 3.4 mmol/L Low 3.5-5.0 Chloride 104 mmol/L N 101-111 Co2 Carbon Dioxide 29 mmol/L N 22-32 Anion Gap 8 mmol/L N 2-11 Glucose 107 mg/dL High 70-100 Blood Urea Nitrogen 11 mg/dL N 6-24 Creatinine 0.67 mg/dL N 0.67-1.17 BUN/Creatinine Ratio 16.4 N 8-20 Calcium 9.3 mg/dL N 8.6-10.3 Total Protein 6.9 g/dL N 6.4-8.9 Albumin 4.5 g/dL N 3.2-5.2 Globulin 2.4 g/dL N 2-4 Albumin/Globulin Ratio 1.9 N 1-3 Total Bilirubin 1.00 mg/dL N 0.2-1.0 Alkaline Phosphatase 96 U/L N 34-104 Alt 26 U/L N 7-52 Ast 22 U/L N 13-39 Egfr Non- 125.1 N >60 Egfr 160.8 N >60 25 CBC Auto Diff 07/16/2016 [facility] White Blood Count 8.0 10^3/uL N 3.5-10.8 Red Blood Count 5.45 10^6/uL High 4.0-5.4 Hemoglobin 16.7 g/dL N 14.0-18.0 Hematocrit 48 % N 42-52 Mean Corpuscular Volume 89 fL N 80-94 Mean Corpuscular Hemoglobin 31 pg N 27-31 Mean Corpuscular HGB Conc 34 g/dL N 31-36 Red Cell Distribution Width 13 % N 10.5-15 Platelet Count 186 10^3/uL N 150-450 Mean Platelet Volume 9 um3 N 7.4-10.4 Abs Neutrophils 4.2 10^3/uL N 1.5-7.7 Abs Lymphocytes 2.8 10^3/uL N 1.0-4.8 Abs Monocytes 0.6 10^3/uL N 0-0.8 Abs Eosinophils 0.3 10^3/uL N 0-0.6 Abs Basophils 0.1 10^3/uL N 0-0.2 Abs Nucleated RBC 0.02 10^3/uL N Granulocyte % 52.6 % N 38-83 Lymphocyte % 35.6 % N 25-47 Monocyte % 7.5 % N 1-9 Eosinophil % 3.3 % N 0-6 Basophil % 1.0 % N 0-2 Nucleated Red Blood Cells % 0.2 N Laboratory test finding 11/27/2014 [facility] Other See Note 26 Basic Metabolic Panel 11/02/2014 [facility] Glucose 103 mg/dL 74-106 BUN 7 mg/dL 7-18 Creatinine 0.9 mg/dL 0.6-1.3 Glom Filtration Rate, Estimate >60 mL/min >60 If >60 mL/min >60 27 BUN/Creat 7.7 ratio Sodium 139 mmol/L 136-145 Potassium 3.1 mmol/L Low 3.5-5.1 Chloride 104 mmol/L 98-107 Carbon Dioxide 31 mmol/L 21-32 Anion Gap 4 mEq/L Low 8-16 Calcium 8.7 mg/dL 8.5-10.1 1 *Ascorbic acid is present which may interfere with detection of blood. 2 Because ethnic data is not always readily available, this report includes an eGFR for both -Americans and non- Americans. The National Kidney Disease Education Program (NKDEP) does not endorse the use of the MDRD equation for patients that are not between the ages of 18 and 70, are , have extremes of body size, muscle mass, or nutritional status, or are non- or non-. According to the National Kidney Foundation, irrespective of diagnosis, the stage of the disease is based on the level of kidney function: Stage Description GFR(mL/min/1.73 m(2)) 1 Kidney damage with normal or decreased GFR 90 2 Kidney damage with mild decrease in GFR 60-89 3 Moderate decrease in GFR 30-59 4 Severe decrease in GFR 15-29 5 Kidney failure <15 (or dialysis) 3 Troponin-I testing on Plasma Separator Tubes (PST) has a known false positive rate of 0.20-0.40%. All positive troponins reflex immediate secondary confirmatory testing. 4 Because ethnic data is not always readily available, this report includes an eGFR for both -Americans and non- Americans. The National Kidney Disease Education Program (NKDEP) does not endorse the use of the MDRD equation for patients that are not between the ages of 18 and 70, are , have extremes of body size, muscle mass, or nutritional status, or are non- or non-. According to the National Kidney Foundation, irrespective of diagnosis, the stage of the disease is based on the level of kidney function: Stage Description GFR(mL/min/1.73 m(2)) 1 Kidney damage with normal or decreased GFR 90 2 Kidney damage with mild decrease in GFR 60-89 3 Moderate decrease in GFR 30-59 4 Severe decrease in GFR 15-29 5 Kidney failure <15 (or dialysis) 5 Because ethnic data is not always readily available, this report includes an eGFR for both -Americans and non- Americans. The National Kidney Disease Education Program (NKDEP) does not endorse the use of the MDRD equation for patients that are not between the ages of 18 and 70, are , have extremes of body size, muscle mass, or nutritional status, or are non- or non-. According to the National Kidney Foundation, irrespective of diagnosis, the stage of the disease is based on the level of kidney function: Stage Description GFR(mL/min/1.73 m(2)) 1 Kidney damage with normal or decreased GFR 90 2 Kidney damage with mild decrease in GFR 60-89 3 Moderate decrease in GFR 30-59 4 Severe decrease in GFR 15-29 5 Kidney failure <15 (or dialysis) 6 Desirable: <150 Borderline High: 150-199 High: 200-499 Very High: >500 7 Desirable: <200 Borderline High: 200-239 High: >239 8 Low: <40 Desirable: 40-60 High: >60 9 Desirable: <100 Near Optimal: 100-129 Borderline High: 130-159 High: 160-189 Very High: >189 10 [id number] 12 [id number] 13 [id number] 15 Desirable <150 Borderline high 150-199 High 200-499 Very High >500 16 Desirable <200 Borderline high 200-239 High >239 17 Low <40 Desirable: 40-60 High: >60 18 Desirable: <100 mg/dL Near Optimal: 100-129 mg/dL Borderline High: 130-159 mg/dL High: 160-189 mg/dL Very High: >189 mg/dL 19 Serologic response to B. burgdorferi infection is not detected, but cannot rule out early infection during which low or undetectable antibody levels to B. burgdorferi may be present. If clinically indicated, a new serum specimen should be submitted in 7-14 days. Test Performed by: [facility] [place] [address] 20 RESULT: Results suggest past infection. ADDITIONAL INFORMATION In most populations, at least 90% of the adult population will have been infected with EBV sometime in the past and therefore, will be positive for anti-VCA/IgG and anti- EBNA. Antibodies to EBNA develop 6-8 weeks after primary infection and remain present for life. Presence of VCA/ IgM antibodies indicates recent primary infection with EBV. Test Performed by: [facility] [place] [address] 21 Test Performed by: [facility] [place] [address] 22 REFERENCE VALUE <=1.0 (Negative) 23 REFERENCE VALUE <20.0 (Negative) 24 Tests for antibodies to dsDNA and DENNISE antigens are not performed automatically unless the REINALDO result is > or= 3.0 U. Studies performed at [facility] indicate that positive REINALDO results <3.0 U are rarely accompanied by positive second order tests. Test Performed by: [place] [address] 25 Because ethnic data is not always readily available, this report includes an eGFR for both -Americans and non- Americans. The National Kidney Disease Education Program (NKDEP) does not endorse the use of the MDRD equation for patients that are not between the ages of 18 and 70, are , have extremes of body size, muscle mass, or nutritional status, or are non- or non-. According to the National Kidney Foundation, irrespective of diagnosis, the stage of the disease is based on the level of kidney function: Stage Description GFR(mL/min/1.73 m(2)) 1 Kidney damage with normal or decreased GFR 90 2 Kidney damage with mild decrease in GFR 60-89 3 Moderate decrease in GFR 30-59 4 Severe decrease in GFR 15-29 5 Kidney failure <15 (or dialysis) 26 DIAGNOSIS: "SOFT TISSUE, RIGHT NECK, EXCISION": - NODULAR FASCITIS AND FIBROADIPOSE AND NEUROVASCULAR ELEMENTS. SEE COMMENT. /arlene 1054 INTERPRETATION COMMENT The specimen demonstrates a central component demonstrating proliferation of reactive fibroblastic elements with fibrosis and mixed inflammation including lymphocytes and scattered eosinophils. These findings are characteristic of nodular fascitis. Tissue demonstrates lobular mature adipose tissue and neurovascular elements with evidence of trauma. No evidence of malignancy is identified. GROSS The specimen is received in formalin in a properly labeled container with the patient's name and accession number. The specimen is designated as "RIGHT NECK MASS" and consists of several pieces of simms soft rubbery tissue with an aggregate dimension of 4.0 x 2.8 x 0.8 cm. [employer] sections are submitted in one cassette. /arlene PRE OPERATIVE DIAGNOSIS 784.2 mass or lump in head or neck REVIEW CODE CODE: I Signed Electronically signed MORIS CHIN MD [id number] Note: Persistent reduction for 3 months or more in an eGFR <60 mL/min/1.73 m2 defines CKD. Patients with eGFR values >/=60 mL/min/1.73 m2 may also have CKD if evidence of persistent proteinuria is present. The original MDRD equation for estimated GFR is not valid for patients less than 18 years of age. Additional information may be found at [email or web address]. Procedures Date Code Description Status 07/26/2017 80505 EKG Completed 07/16/2016 81496 EKG Completed Encounters Type Date Location Provider Dx Diagnosis Office Visit 04/18/2018 [facility] Rocio Erickson I10 Essential ( primary) 1:15p Mayi hypertension I34.2 Nonrheumatic mitral (valve) stenosis E78.2 Mixed hyperlipidemia M15.9 Polyosteoarthritis, unspecified F41.9 Anxiety disorder, unspecified G47.00 Insomnia, unspecified F33.9 Major depressive disorder, recurrent, unspecified L20.9 Atopic dermatitis, unspecified J30.9 Allergic rhinitis, unspecified R53.83 Other fatigue F17.210 Nicotine dependence, cigarettes, uncomplicated R00.2 Palpitations E55.9 Vitamin D deficiency, unspecified M10.9 Gout, unspecified G47.33 Obstructive sleep apnea (adult) (pediatric) K58.1 Irritable bowel syndrome with constipation Office Visit 11/29/2017 8:45a [facility] Rocio Erickson I10 Essential ( primary) Mayi Mcelroy hypertension I34.2 Nonrheumatic mitral (valve) stenosis E78.2 Mixed hyperlipidemia M15.9 Polyosteoarthritis, unspecified K59.00 Constipation, unspecified F41.9 Anxiety disorder, unspecified G47.00 Insomnia, unspecified F33.9 Major depressive disorder, recurrent, unspecified L20.9 Atopic dermatitis, unspecified J30.9 Allergic rhinitis, unspecified R53.83 Other fatigue F17.210 Nicotine dependence, cigarettes, uncomplicated R00.2 Palpitations E55.9 Vitamin D deficiency, unspecified M10.9 Gout, unspecified G47.33 Obstructive sleep apnea (adult) (pediatric) Office Visit 10/04/2017 4:15p [facility] Dre, Ahmad I10 Essential ( primary) Mayi Mcelroy hypertension I34.2 Nonrheumatic mitral (valve) stenosis E78.2 Mixed hyperlipidemia M15.9 Polyosteoarthritis, unspecified K59.00 Constipation, unspecified F41.9 Anxiety disorder, unspecified G47.00 Insomnia, unspecified F33.9 Major depressive disorder, recurrent, unspecified L20.9 Atopic dermatitis, unspecified J30.9 Allergic rhinitis, unspecified R53.83 Other fatigue F17.210 Nicotine dependence, cigarettes, uncomplicated R00.2 Palpitations E55.9 Vitamin D deficiency, unspecified M10.9 Gout, unspecified Office Visit 09/08/2017 4:30p [facility] DerRocio reyes E78.2 Mixed hyperlipidemia Mayi Mcelroy M15.9 Polyosteoarthritis, unspecified K59.00 Constipation, unspecified F41.9 Anxiety disorder, unspecified G47.00 Insomnia, unspecified F33.9 Major depressive disorder, recurrent, unspecified L20.9 Atopic dermatitis, unspecified J30.9 Allergic rhinitis, unspecified R53.83 Other fatigue F17.210 Nicotine dependence, cigarettes, uncomplicated R00.2 Palpitations I10 Essential (primary) hypertension I34.2 Nonrheumatic mitral (valve) stenosis E55.9 Vitamin D deficiency, unspecified M10.9 Gout, unspecified Office Visit 08/02/2017 3:00p [facility] Rocio Erickson E78.2 Mixed hyperlipidemia Mayi Mcelroy M15.9 Polyosteoarthritis, unspecified K59.00 Constipation, unspecified F41.9 Anxiety disorder, unspecified G47.00 Insomnia, unspecified F33.9 Major depressive disorder, recurrent, unspecified L20.9 Atopic dermatitis, unspecified J30.9 Allergic rhinitis, unspecified R53.83 Other fatigue F17.210 Nicotine dependence, cigarettes, uncomplicated R00.2 Palpitations I10 Essential (primary) hypertension I34.2 Nonrheumatic mitral (valve) stenosis E55.9 Vitamin D deficiency, unspecified M10.9 Gout, unspecified Office Visit 07/26/2017 2:45p [facility] DreRocio reyes E78.2 Mixed hyperlipidemia Mayi Mcelroy M15.9 Polyosteoarthritis, unspecified K59.00 Constipation, unspecified F41.9 Anxiety disorder, unspecified G47.00 Insomnia, unspecified F33.9 Major depressive disorder, recurrent, unspecified L20.9 Atopic dermatitis, unspecified J30.9 Allergic rhinitis, unspecified R53.83 Other fatigue F17.210 Nicotine dependence, cigarettes, uncomplicated R00.2 Palpitations I10 Essential (primary) hypertension I34.2 Nonrheumatic mitral (valve) stenosis E55.9 Vitamin D deficiency, unspecified M10.9 Gout, unspecified Z00.01 Encounter for general adult medical exam w abnormal findings Z68.33 Body mass index (BMI) 33.0-33.9, adult Office Visit 06/15/2017 8:00a [facility] Feliciano, K59.00 Constipation, Sandra, PERFORMANCE CONSULTANT unspecified R03.0 Elevated blood-pressure reading, w/o diagnosis of htn [facility] Polyosteoarthritis, Office Hima Mcelroy. unspecified F41.9 Anxiety disorder, unspecified G47.00 Insomnia, unspecified F33.9 Major depressive disorder, recurrent, unspecified L20.9 Atopic dermatitis, unspecified J30.9 Allergic rhinitis, unspecified R53.83 Other fatigue E78.2 Mixed hyperlipidemia F17.210 Nicotine dependence, cigarettes, uncomplicated R00.2 Palpitations Z00.01 Encounter for general adult medical exam w abnormal findings Z68.33 Body mass index (BMI) 33.0-33.9, adult Office Visit 11/01/2014 2:30p [facility] Rocio Erickson 785.6 Lymph Nodes M., M.D. Enlargement 300.00 Anxiety State Unspec 311 Depressive Disorder Not Elsewhere Spec 780.79 Malaise And Fatigue Other 715.90 Osteoarthrosis Unspec Genlzd Or Localized Site Unspec 719.46 Pain Joint Lower Leg 780.52 Insomnia Unspecified Office Visit 04/03/2013 9:45a [facility] Rocio Erickson M., 300.00 Anxiety State M.D. Unspec 311 Depressive Disorder Not Elsewhere Spec 780.79 Malaise And Fatigue Other 715.90 Osteoarthrosis Unspec Genlzd Or Localized Site Unspec 719.46 Pain Joint Lower Leg 780.52 Insomnia Unspecified Office Visit 12/28/2012 4:30p [facility] Ansley Ericksonariadna M., 300.00 Anxiety State M.D. Unspec 311 Depressive Disorder Not Elsewhere Spec 780.79 Malaise And Fatigue Other 715.90 Osteoarthrosis Unspec Genlzd Or Localized Site Unspec 719.46 Pain Joint Lower Leg 729.5 Pain In Limb Office Visit 08/31/2012 3:00p [facility] Ansley Ericksonariadna Sánchez., 300.00 Anxiety State M.D. Unspec 311 Depressive Disorder Not Elsewhere Spec 780.79 Malaise And Fatigue Other 715.90 Osteoarthrosis Unspec Genlzd Or Localized Site Unspec 719.46 Pain Joint Lower Leg 729.5 Pain In Limb Office Visit 07/13/2012 4:15p [facility] Ansley Ericksonariadna Sánchez., 300.00 Anxiety State M.D. Unspec 311 Depressive Disorder Not Elsewhere Spec 780.79 Malaise And Fatigue Other 715.90 Osteoarthrosis Unspec Genlzd Or Localized Site Unspec 719.46 Pain Joint Lower Leg 729.5 Pain In Limb Office Visit 03/23/2012 4:45p [facility] Ansley Ericksonariadna Sánchez., 300.00 Anxiety State M.D. Unspec 311 Depressive Disorder Not Elsewhere Spec 780.79 Malaise And Fatigue Other 715.90 Osteoarthrosis Unspec Genlzd Or Localized Site Unspec 719.46 Pain Joint Lower Leg 729.5 Pain In Limb Office Visit 02/03/2012 11:30a [facility] Ansley Ericksonariadna Sánchez., 300.00 Anxiety State M.D. Unspec 311 Depressive Disorder Not Elsewhere Spec 780.79 Malaise And Fatigue Other 715.90 Osteoarthrosis Unspec Genlzd Or Localized Site Unspec 719.46 Pain Joint Lower Leg Office Visit 12/03/2011 11:00a [facility] Dre, Shelbyaziza Sánchez., 780.79 Malaise And M.D. Fatigue Other 300.00 Anxiety State Unspec 715.90 Osteoarthrosis Unspec Genlzd Or Localized Site Unspec 719.46 Pain Joint Lower Leg 729.5 Pain In Limb Office Visit 06/03/2011 2:15p [facility] DreRocio reyes, 780.79 Malaise And M.D. Fatigue Other 788.1 Dysuria 300.00 Anxiety State Unspec 311 Depressive Disorder Not Elsewhere Spec Plan of Treatment 04/18/2018 - Rocio Erickson M.D.I10 Essential (primary) hypertensionComments: CHECK BP TIW ( PRN)DIET AND FLUID COUNSELING LOW SODIUM DIETWT LOSSF/U LAB SMOKING IZIDSAXWBA57.2 Nonrheumatic mitral (valve) stenosisComments:OBSERVE F/U WITH PRVPVFZFSGD31.2 Mixed hyperlipidemiaComments:DIET REVIEWED CONTINUE DIETWT LOSSF/U LAB FBWM15.9 Polyosteoarthritis, unspecifiedComments:EXERCISE/HEAT/ MESSAGETYLENOL OR MOTRIN PRNAVOID HEAVY LIFTINGWT LOSS DUR CSDLPBSX79.9 Anxiety disorder, unspecifiedComments:COUNCELLING AND REASSURANCE RELAXATION TECHNIQUES DISCUSSEDCOUNSELED RE: STRESSORS IN LIFE AVOID ALLENERGY/HIGH CAFFEINE DRINKS DUR JRDZUKNP32.00 Insomnia, unspecifiedComments:COUNCELLING AND REASSURANCE RELAXATION TECHNIQUES DISCUSSED COUNSELED RE: STRESSORS IN LIFE TYLENOLPM OR MOTRIN PM PRN DUR VBHEXUVL71.9 Major depressive disorder, recurrent, unspecifiedComments:COUNCELLING AND REASSURANCE RELAXATION TECHNIQUES DISCUSSED COUNSELED RE: STRESSORS IN LIFEL20.9 Atopic dermatitis, unspecifiedComments: SKIN CARE INSTRUCTIONS LOTION OR BABY OIL 2-3 APPLICATION PER DAYUSE MOISTURIZING SOAPAVOID PROLONGED WATER EXPOSUREAVOID USING HOT WATER IN HQYXBPI52.9 Allergic rhinitis, unspecifiedComments:INCREASE PO FLUID USE ANTIHISTAMINE PRN SECOND HAND SMOKING AVOIDANCE SMOKING UTVHLKXBIW57.83 Other fatigueComments:INCRFEASE PO FLUIDCOUNCELLING AND REASSURANCE RESTF17.210 Nicotine dependence, cigarettes, uncomplicatedComments:SMOKING CESSATION MLPGQDSWUCBD84.2 PalpitationsComments:IMJUSPPZOBGWOVIY27.9 Vitamin D deficiency , unspecifiedComments:INCREASE EXPOSURE TO SUNREVIEW OF DIETM10.9 Gout, unspecifiedComments:EXERCISE/HEAT/MESSAGE TAKE MEDICATIONS DIRECTEDF/U DIRECTEDCALL WITH QUESTIONS OR CONCERNSWEIGHT BEARING BRWOPWNWDK91.33 Obstructive sleep apnea (adult) (pediatric)Comments:OBSERVEWT LOSS SMOKING XLWVLUKOCW13.1 Irritable bowel syndrome with constipationNew Medication:Miralax 3350 NF - 1-2 caps by mouth every dayComments:MOM OR MIRALAX PRNHIGH FIBER DIETINCREASE PO FLUID
[2018-05-16 01:18] LABS: ABS Basophils 0.1 10^3/ul (0-0.2); ABS Eosinophils 0.2 10^3/ul (0-0.6); ABS Monocytes 0.8 10^3/ul (0-0.8); ABS Neutrophils 7.4 10^3/ul (1.5-7.7); ABS Nucleated RBC 0 10^3/ul; Eosinophil % 1.6 %; Hematocrit 44 % (42-52); Hemoglobin 15.6 g/dl (14.0-18.0); Lymphocyte % 19.4 %; Mean Corpuscular HGB Conc 35 g/dl (31-36); Mean Corpuscular Hemoglobin 31 pg (27-31); Mean Corpuscular Volume 89 fL (80-94); Mean Platelet Volume 8.1 fL (7.4-10.4); Nucleated Red Blood Cells % 0.1; Platelet Count 229 10^3/ul (150-450); Red Cell Distribution Width 13 % (10.5-15); White Blood Count 10.4 10^3/ul (3.5-10.8)
[2018-05-16 01:35] LABS: Albumin 4.5 g/dL (3.2-5.2); BUN/Creatinine Ratio 20.2 (8-20); C Reactive Protein 5.47 mg/L (<8.01); Calcium 9.1 mg/dL (8.6-10.3); EGFR African American 101.6 (>60); EGFR Non-African American 83.9 (>60); Globulin 2.3 g/dL (2-4); Total Bilirubin 0.9 mg/dL (0.2-1.0); Total Protein 6.8 g/dL (6.4-8.9)
[2018-05-16 01:36] LABS: Troponin I 0.01 ng/mL (<0.04)
[2018-05-16] MEDS ORDERED: Potassium Chlor TAB* 20 MEQ TAB.ER PO ONE (01:55)
--- NOTE | 2018-05-16 02:01 | ED ---
Abdominal Pain/Male - HPI Summary HPI Summary: Patient complains of constipation, mild abdominal pain and shortness of breath after eating a big meal 2 weeks. Seen here for same 1 week ago with diagnosis constipation. Patient states he has been trying to get in with GI but has been unsuccessful despite several calls to PCP. Patient denies any new symptoms, is here hoping to facilitate follow-up with GI. Denies fever, cough, sore throat, CP, N/V/D, change in urine, penis or testicular symptoms. Medical history is none. Abdominal surgical history is none. - History of Current Complaint Chief Complaint: EDAbdPain Stated Complaint: HAVING TROUBLE BREATHING PER PT. Time Seen by Provider: 05/16/18 01:04 Hx Obtained From: Patient Onset/Duration: Gradual Onset, Lasting Weeks Timing: Intermittent Severity Currently: None Pain Intensity: 0 Pain Scale Used: 0-10 Numeric Radiates: No - Allergies/Home Medications Allergies/Adverse Reactions: Allergies Allergy/AdvReac Type Severity Reaction Status Date / Time No Known Allergies Allergy Verified 07/29/17 22:23 PMH/Surg Hx/FS Hx/Imm Hx Endocrine/Hematology History: Denies: Hx Diabetes Cardiovascular History: Reports: Hx Hypertension Denies: Hx Angina, Hx Coronary Artery Disease, Hx Hypercholesterolemia, Hx Myocardial Infarction, Hx Valvular Heart Disease - Chronic murmur since childhood Respiratory History: Denies: Hx Asthma, Hx Chronic Obstructive Pulmonary Disease (COPD) History: Denies: Hx Dialysis Sensory History: Denies: Hx Eye Prosthesis Opthamlomology History: Denies: Hx Legally Blind EENT History: Denies: Hx Deafness Neurological History: Denies: Hx Dementia - Surgical History Surgery Procedure, Year, and Place: left knee 1981, right thumb 1983 Infectious Disease History: No Infectious Disease History: Denies: Hx Clostridium Difficile, Hx Hepatitis, Hx Human Immunodeficiency Virus (HIV), Hx of Known/Suspected MRSA, Hx Shingles, Hx Tuberculosis, Hx Known/ Suspected VRE, Hx Known/Suspected VRSA, History Other Infectious Disease, Traveled Outside the [place] in Last 30 Days - Family History Known Family History: Positive: Hypertension - Social History Alcohol Use: None Substance Use Type: Reports: None Smoking Status (MU): Former Smoker Length of Time of Smoking/Using Tobacco: 27 Review of Systems Constitutional: Negative Eyes: Negative ENT: Negative Cardiovascular: Negative Respiratory: Negative Positive: Abdominal Pain Genitourinary: Negative Musculoskeletal: Negative Skin: Negative Neurological: Negative Psychological: Normal All Other Systems Reviewed And Are Negative: Yes Physical Exam - Summary Physical Exam Summary: No pain with palpation of abdomen. Lung sounds clear to auscultation bilaterally. RRR. Triage Information Reviewed: Yes Vital Signs On Initial Exam: Initial Vitals Temp Pulse Resp BP Pulse Ox 99.3 F 78 20 205/101 98 05/15/18 23:19 05/15/18 23:19 05/15/18 23:19 05/15/18 23:19 05/15/18 23:19 Vital Signs Reviewed: Yes Appearance: Positive: Well-Appearing Skin: Positive: Warm Head/Face: Positive: Normal Head/Face Inspection Eyes: Positive: Normal Neck: Positive: Supple Respiratory/Lung Sounds: Positive: Clear to Auscultation Cardiovascular: Positive: Normal Abdomen Description: Positive: Nontender Musculoskeletal: Positive: Normal Neurological: Positive: Normal Psychiatric: Positive: Normal AVPU Assessment: Alert - Gerard Coma Scale Best Eye Response: 4 - Spontaneous Best Motor Response: 6 - Obeys Commands Best Verbal Response: 5 - Oriented Coma Scale Total: 15 Diagnostics - Vital Signs Vital Signs Temp Pulse Resp BP Pulse Ox 05/15/18 23:19 99.3 F 78 20 205/101 98 - Laboratory Lab Results: Lab Results 05/16/18 05/16/18 05/16/18 Range/Units 01:12 01:12 01:12 WBC 10.4 (3.5-10.8) 10^3/ul RBC 5.00 (4.00-5.40) 10^6/ul Hgb 15.6 (14.0-18.0) g/dl Hct 44 (42-52) % MCV 89 (80-94) fL MCH 31 (27-31) pg MCHC 35 (31-36) g/dl RDW 13 (10.5-15) % Plt Count 229 (150-450) 10^3/ul MPV 8.1 (7.4-10.4) fL Neut % (Auto) 70.4 % Lymph % (Auto) 19.4 % [place] % (Auto) 8.0 % Eos % (Auto) 1.6 % Baso % (Auto) 0.6 % Absolute Neuts (auto) 7.4 (1.5-7.7) 10^3/ul Absolute Lymphs (auto) 2.0 (1.0-4.8) 10^3/ul Absolute Monos (auto) 0.8 (0-0.8) 10^3/ul Absolute Eos (auto) 0.2 (0-0.6) 10^3/ul Absolute Basos (auto) 0.1 (0-0.2) 10^3/ul Absolute Nucleated RBC 0 10^3/ul Nucleated RBC % 0.1 Sodium 138 (135-145) mmol/L Potassium 3.0 L (3.5-5.0) mmol/L Chloride 101 (101-111) mmol/L Carbon Dioxide 28 (22-32) mmol/L Anion Gap 9 (2-11) mmol/L BUN 19 (6-24) mg/dL Creatinine 0.94 (0.67-1.17) mg/dL Est GFR ( Amer) 101.6 (>60) Est GFR (Non-Af Amer) 83.9 (>60) BUN/Creatinine Ratio 20.2 H (8-20) Glucose 98 (70-100) mg/dL Lactic Acid 0.8 (0.5-2.0) mmol/L Calcium 9.1 (8.6-10.3) mg/dL Total Bilirubin 0.90 (0.2-1.0) mg/dL AST 21 (13-39) U/L ALT 30 (7-52) U/L Alkaline Phosphatase 79 (34-104) U/L Troponin I 0.01 (<0.04) ng/mL C-Reactive Protein 5.47 (<8.01) mg/L Total Protein 6.8 (6.4-8.9) g/dL Albumin 4.5 (3.2-5.2) g/dL Globulin 2.3 (2-4) g/dL Albumin/Globulin Ratio 2.0 (1-3) Lipase 12 (11.0-82.0) U/L Result Diagrams: 05/16/18 01:12 05/16/18 01:12 Lab Statement: Any lab studies that have been ordered have been reviewed, and results considered in the medical decision making process. Abdominal Pain Male Course/Dx - Course Course Of Treatment: Patient complains of constipation, mild abdominal pain and shortness of breath after eating a big meal 2 weeks. Seen here for same 1 week ago with diagnosis constipation. Patient states he has been trying to get in with GI but has been unsuccessful despite several calls to PCP. Patient denies any new symptoms, is here hoping to facilitate follow-up with GI. Denies fever, cough, sore throat, CP, N/V/D, change in urine, penis or testicular symptoms. Medical history is none. Abdominal surgical history is none. Physical exam:No pain with palpation of abdomen. Lung sounds clear to auscultation bilaterally. RRR. Vital signs within normal limits. Labs unremarkable. KUB positive for stool burn. Chest x-ray negative for acute process. EKG sinus rhythm. No active symptoms. Patient hoping for to facilitate follow-up with GI. Patient referred to Dr. Nasim RIVERA for follow- up. Patient understands and approves plan. - Diagnoses Provider Diagnoses: Abdominal pain, Constipation Discharge - Sign-Out/Discharge Documenting (check all that apply): Patient Departure Patient Received Moderate/Deep Sedation with Procedure: No - Discharge Plan Condition: Stable Disposition: HOME Patient Education Materials: Abdominal Pain (ED) Referrals: Rocio Erickson MD [Primary Care Provider] - Saw Rouse MD [Medical Doctor] - Additional Instructions: Follow-up with GI Dr. Rouse for further evaluation. Continue to take MiraLAX as directed. Drink plenty of fluids to maintain hydration. Return to the ED for any new or worsening symptoms. - Billing Disposition and Condition Condition: STABLE Disposition: Home
[2018-05-16 02:43] VITALS: BP 162/88
== END 2018-05-16 02:41 | disposition home or self-care (01) ==
LOC: ED 23:10
DX: K59.00 Constipation, unspecified (principal); R10.9 Unspecified abdominal pain; R06.02 Shortness of breath
CPT/HCPCS: 36415; 71046; 74018; 80053; 83605; 83690; 84484; 85025; 86140; 93005; 99282; A9270-GY

== ENCOUNTER 2019-08-14 08:21 | Observation (INO) ==
[2019-08-14] MEDS ORDERED: Diazepam 5 mg TAB (*) ONE (09:43)
[2019-08-14] MEDS ORDERED: diPHENhydraMINE 25 mg TAB ONE (09:43)
[2019-08-14] MEDS ORDERED: VERAPAMIL 2.5 MG/ML 2 ML VIAL ** 5 mg/2 ml ONE (09:51)
[2019-08-14] MEDS ORDERED: fentaNYL 100 mcg/2 ml 50 MCG/ML VIAL ONE (09:51)
[2019-08-14] MEDS ORDERED: Heparin 1,000 UNIT/ML CATH LAB 1,000 10 ml (10,000 UNITS) IV ONE ×2 (09:51→11:21)
[2019-08-14] MEDS ORDERED: Midazolam 5 mg/5 ml VIAL 1 mg/ml 5 ml VIAL (5 mg) ONE (09:51)
[2019-08-14] MEDS ORDERED: Lidocaine 1% VIAL 10 MG/ML VIAL ONE (09:52)
[2019-08-14] MEDS ORDERED: nitroGLYCERIN DRIP 0 MCG/0 ML BTL ONE (09:52)
[2019-08-14] MEDS ORDERED: Heparin 2 UNITS/ML 1000 mls 3,000 ML IV ONE (09:52)
[2019-08-14] MEDS ORDERED: Iohexol 350 (CONTRAST) 200 ML MDV IV ONE ×2 (09:53)
[2019-08-14 12:09] LABS: POC SO2 69 %
[2019-08-14 12:09] LABS: POC SO2 96 %
[2019-08-14 12:09] LABS: POC SO2 63 %
[2019-08-14] MEDS ORDERED: oxyCODONE/Acetamin 5/325 mg TAB PO PRN (12:33)
[2019-08-14] MEDS ORDERED: diPHENhydraMINE 25 mg TAB PO PRN (12:37)
[2019-08-14] MEDS ORDERED: NS 0.9% 1000 ml BAG 1,000 ML IV SCH (12:45)
[2019-08-14] MEDS ORDERED: LINACLOTIDE 290 MCG PO SCH (18:00)
[2019-08-15 05:54] LABS: Calcium 8.7 mg/dL (8.6-10.3); Potassium 3.2 mmol/L (3.5-5.0)
[2019-08-15 06:00] LABS: BUN/Creatinine Ratio 21.7 (8-20); EGFR African American 144.6 (>60); EGFR Non-African American 119.5 (>60)
[2019-08-15 06:27] LABS: ABS Eosinophils 0.3 10^3/ul (0-0.6); ABS Lymphocytes 2.1 10^3/ul (1.0-4.8); ABS Monocytes 0.8 10^3/ul (0-0.8); Eosinophil % 3.2 %; Hematocrit 41 % (42-52); Hemoglobin 14.6 g/dL (14.0-18.0); Lymphocyte % 23.8 %; Mean Corpuscular HGB Conc 36 g/dL (31-36); Mean Corpuscular Hemoglobin 32 pg (27-31); Mean Corpuscular Volume 88 fL (80-94); Mean Platelet Volume 8.5 fL (7.4-10.4); Nucleated Red Blood Cells % 0.2; Platelet Count 205 10^3/uL (150-450); Red Cell Distribution Width 13 % (10-15); White Blood Count 8.9 10^3/uL (3.5-10.8)
[2019-08-15] MEDS ORDERED: Potassium Chlor 20 meq TAB.ER PO ONE (08:19)
[2019-08-15] MEDS ORDERED: Aspirin EC 81 mg TAB.EC (enteric coated) PO SCH (09:00)
[2019-08-15] MEDS ORDERED: Buprenorp/Nalox 8-2 MG FILM SL FILM SCH (09:00)
[2019-08-15 09:03] VITALS: BP 143/38
[2019-08-15 13:37] LABS: Magnesium 1.8 mg/dL (1.9-2.7)
== END 2019-08-15 11:10 | disposition home or self-care (01) ==
LOC: ICU 08:21 → CHICATH 08:21
PROVIDERS: ADMIT Specialist; ATTEND Internal Medicine Cardiovascular Disease

== ENCOUNTER 2019-08-22 08:02 | Observation (INO) ==
[2019-08-22 08:46] LABS: ABS Basophils 0.1 10^3/ul (0-0.2); ABS Eosinophils 0.2 10^3/ul (0-0.6); ABS Lymphocytes 1.7 10^3/ul (1.0-4.8); ABS Monocytes 0.5 10^3/ul (0-0.8); Eosinophil % 2.4 %; Hematocrit 42 % (42-52); Hemoglobin 15.2 g/dL (14.0-18.0); Lymphocyte % 20.1 %; Mean Corpuscular HGB Conc 36 g/dL (31-36); Mean Corpuscular Hemoglobin 32 pg (27-31); Mean Corpuscular Volume 88 fL (80-94); Mean Platelet Volume 8.6 fL (7.4-10.4); Nucleated Red Blood Cells % 0.1; Platelet Count 236 10^3/uL (150-450); Red Blood Count 4.78 10^6 /uL (4.18-5.48); Red Cell Distribution Width 13 % (10-15); White Blood Count 8.7 10^3/uL (3.5-10.8)
[2019-08-22 08:54] LABS: Albumin 4.5 g/dL (3.2-5.2); Calcium 9.1 mg/dL (8.6-10.3); EGFR African American 115.2 (>60); EGFR Non-African American 95.2 (>60); Globulin 2.3 g/dL (2-4); Magnesium 1.7 mg/dL (1.9-2.7); Potassium 2.9 mmol/L (3.5-5.0); Total Protein 6.8 g/dL (6.4-8.9)
[2019-08-22 08:55] LABS: Troponin I 0.01 ng/mL (<0.03)
[2019-08-22] MEDS ORDERED: Potassium Chlor 20 meq TAB.ER PO ONE (09:00)
[2019-08-22] MEDS ORDERED: Magnesium Sulfate 2 gm BAG 2 GM/50 ML BAG IVPB ONE (09:00)
[2019-08-22] MEDS ORDERED: KCL 10 MEQ/50 ML IVPREMIX 10 MEQ/50 ML BAG IV ONE (09:03)
[2019-08-22] MEDS ORDERED: NS 0.9% 1000 ml BAG 1,000 ML IV ONE (09:03)
[2019-08-22 11:48] LABS: Troponin I 0.04 ng/mL (<0.03)
[2019-08-22] MEDS ORDERED: Ondansetron 4 mg VIAL 2 MG/ML 2 ml VIAL IV PRN (13:25)
[2019-08-22] MEDS ORDERED: Senna TAB 8.6 mg TAB PO PRN (13:25)
[2019-08-22] MEDS ORDERED: diPHENhydraMINE 25 mg TAB PO PRN (13:31)
[2019-08-22] MEDS ORDERED: Metoprolol Tartrate 5 mg VIAL 5 ml VIAL (1 mg/ml) IV ONE (13:44)
[2019-08-22] MEDS ORDERED: hydrALAZINE 20 mg/ml 1 ML Vial IV IV SLOW PU ONE (13:57)
[2019-08-22] MEDS: KCL 20 MEQ/100 ML IVPREMIX 20 MEQ/100 ML BAG IV SCH ×2 (14:03→18:12)
[2019-08-22 14:47] LABS: Anion Gap 4 mmol/L (2-11); BUN/Creatinine Ratio 17.3 (8-20); Blood Urea Nitrogen 13 mg/dL (6-24); CO2 Carbon Dioxide 30 mmol/L (22-32); Calcium 8.4 mg/dL (8.6-10.3); Chloride 105 mmol/L (101-111); EGFR African American 131.3 (>60); EGFR Non-African American 108.5 (>60); Glucose 93 mg/dL (70-100); Potassium 3.2 mmol/L (3.5-5.0); Sodium 139 mmol/L (135-145)
[2019-08-22 14:48] LABS: Troponin I 0.05 ng/mL (<0.03)
[2019-08-22] MEDS ORDERED: Nicotine GUM 2MG FRUIT FLAVOR PO PRN (15:32)
[2019-08-22] MEDS: Heparin 5000 UNITS/ML VIAL(*) 1 ml vial SUBCUT SCH ×2 (16:24→21:03)
[2019-08-22 19:11] LABS: Troponin I 0.03 ng/mL (<0.03)
[2019-08-22] MEDS ORDERED: Potassium Chloride LIQUID 20 MEQ/15 ML LIQUID PO ONE (20:17)
[2019-08-22] MEDS ORDERED: KCL 20 MEQ/100 ML IVPREMIX 20 MEQ/100 ML BAG IV ONE (20:17)
[2019-08-22] MEDS: Buprenorp/Nalox 8-2 MG FILM SL FILM SCH (21:02)
[2019-08-22 23:35] LABS: Urine Appearance Cloudy; Urine Bilirubin Negative (Negative); Urine Blood Negative (Negative); Urine Color Yellow; Urine Glucose Negative (Negative); Urine Ketones Negative (Negative); Urine Nitrite Negative (Negative); Urine Protein Negative (Negative); Urine Specific Gravity 1.016 (1.010-1.030); Urine Urobilinogen Negative (Negative)
[2019-08-23] MEDS: Heparin 5000 UNITS/ML VIAL(*) 1 ml vial SUBCUT SCH ×3 (05:12→20:30)
[2019-08-23 06:50] LABS: ABS Basophils 0.1 10^3/ul (0-0.2); ABS Eosinophils 0.3 10^3/ul (0-0.6); ABS Lymphocytes 2.1 10^3/ul (1.0-4.8); ABS Monocytes 0.5 10^3/ul (0-0.8); Eosinophil % 4.1 %; Hematocrit 41 % (42-52); Hemoglobin 14.6 g/dL (14.0-18.0); Lymphocyte % 28.6 %; Mean Corpuscular HGB Conc 36 g/dL (31-36); Mean Corpuscular Hemoglobin 32 pg (27-31); Mean Corpuscular Volume 89 fL (80-94); Mean Platelet Volume 8.4 fL (7.4-10.4); Nucleated Red Blood Cells % 0.1; Platelet Count 204 10^3/uL (150-450); Red Cell Distribution Width 13 % (10-15); White Blood Count 7.3 10^3/uL (3.5-10.8)
[2019-08-23 06:55] LABS: BUN/Creatinine Ratio 20.3 (8-20); Calcium 8.6 mg/dL (8.6-10.3); EGFR African American 144.6 (>60); EGFR Non-African American 119.5 (>60); Magnesium 2.2 mg/dL (1.9-2.7)
[2019-08-23] MEDS ORDERED: Linaclotide 290 mcg CAP (NF) PO SCH (09:00)
[2019-08-23] MEDS: Nicotine PATCH 14 MG/24 HR PATCH TRANSDERM SCH (09:17)
[2019-08-23] MEDS: Buprenorp/Nalox 8-2 MG FILM SL FILM SCH ×2 (09:19→20:24)
[2019-08-23] MEDS: CMCS: LINACLOTIDE 72 MCG CAP (NF) PO SCH (11:27)
[2019-08-24] MEDS: Heparin 5000 UNITS/ML VIAL(*) 1 ml vial SUBCUT SCH ×3 (05:33→21:54)
[2019-08-24 06:51] LABS: BUN/Creatinine Ratio 19.8 (8-20); Calcium 8.8 mg/dL (8.6-10.3); EGFR African American 120.2 (>60); EGFR Non-African American 99.3 (>60); Magnesium 2.1 mg/dL (1.9-2.7)
[2019-08-24] MEDS: Nicotine PATCH 14 MG/24 HR PATCH TRANSDERM SCH (08:22)
[2019-08-24] MEDS: CMCS: LINACLOTIDE 72 MCG CAP (NF) PO SCH (08:28)
[2019-08-24] MEDS ORDERED: Aminophylline 25 MG/ML VIAL ONE (09:48)
[2019-08-24] MEDS ORDERED: Regadenoson 0.4 MG/5 ML SYRINGE ONE (09:48)
[2019-08-24] MEDS: Buprenorp/Nalox 8-2 MG FILM SL FILM SCH ×2 (09:53→21:53)
[2019-08-24] MEDS ORDERED: LORazepam 0.5 mg TAB (*) PO PRN (13:52)
[2019-08-25] MEDS: Heparin 5000 UNITS/ML VIAL(*) 1 ml vial SUBCUT SCH (05:43)
[2019-08-25] MEDS: CMCS: LINACLOTIDE 72 MCG CAP (NF) PO SCH (08:00)
[2019-08-25] MEDS: Buprenorp/Nalox 8-2 MG FILM SL FILM SCH (08:17)
[2019-08-25] MEDS: Nicotine PATCH 14 MG/24 HR PATCH TRANSDERM SCH (08:20)
[2019-08-25 09:17] VITALS: BP 177/79
== END 2019-08-25 12:00 | disposition home or self-care (01) ==
LOC: MEDTELE 08:02 → ED 08:02 → MEDTELE 16:00
PROVIDERS: ADMIT Internal Medicine; ATTEND Hospitalist